=== PATIENT | female | born 1995 | race African-American/Black ===

== ENCOUNTER 2016-05-19 08:05 | Emergency (ER) | payer MEDICAID ==
[~2016-05-19] VITALS: Ht 165.1 cm; Wt 85.0 kg
[2016-05-19 09:06] LABS: BASOPHILS % 0.4 % (0.0-2.0); EOSINOPHILS % 3.6 % (0.0-5.0); HEMOGLOBIN. 12.6 g/dL (12.0-16.0); LYMPHOCYTES % 24.1 % (20.0-50.0); MEAN CORPUSCULAR HEMOGLOBIN 29.2 pg (28.0-32.0); MEAN CORPUSCULAR HGB CONC 33.2 g/dL (31.0-37.0); MEAN PLATELET VOLUME 7.9 fl (7.4-10.4); MONOCYTES % 6.4 % (2.0-8.0); NEUTROPHILS % 65.5 % (40.0-76.0); PLATELET 261 x1000/uL (130-400); RED BLOOD CELL COUNT 4.32 mill/uL (4.2-5.4); RED CELL DISTRIBUTION WIDTH 12.8 % (11.6-14.6); WHITE BLOOD COUNT 7.5 x1000/uL (4.5-11.0)
[2016-05-19 09:14] LABS: CHLORIDE 108 mEq/L (98-107); INDEX HEMOLYSI 1 (1-3); INDEX ICTERIC 1 (1-4); INDEX LIPEMIC 1 (1-3)
[2016-05-19 09:16] LABS: CALCIUM 8.4 mg/dL (8.5-10.1)
[2016-05-19 09:24] LABS: ANION GAP 12; CARBON DIOXIDE 24 mEq/L (21-32); UREA NITROGEN BLOOD 11 mg/dL (7-21); eGFR > 60 mL/min (>60)
[2016-05-19 09:37] LABS: B-HCG QUANTITATIVE 3063 mIU/mL (<3)
[2016-05-19 11:00] VITALS: BP 129/83
== END 2016-05-19 11:01 | disposition home or self-care (01) ==
LOC: ER 08:14
DX: O03.9 Complete or unspecified spontaneous abortion without complication (principal); O26.891 Other specified pregnancy related conditions, first trimester; F41.9 Anxiety disorder, unspecified; Z3A.08 8 weeks gestation of pregnancy
CPT/HCPCS: 36415; 76801; 76817; 80048; 84702; 85025; 86850; 86900; 86901; 99285; Z7610

== ENCOUNTER 2021-02-07 19:14 | Emergency (ER) | payer MEDICAID ==
[~2021-02-07] VITALS: Ht 162.6 cm; Wt 111.3 kg
[2021-02-07 19:30] VITALS: BP 131/58
[2021-02-07 20:45] LABS: CLARITY URINE CLEAR (CLEAR); COLOR URINE YELLOW (YELLOW); KETONES URINE NEGATIVE (NEGATIVE); LEUKOCYTE ESTERASE URINE TRACE (NEGATIVE); NITRITE URINE NEGATIVE (NEGATIVE); OCCULT BLOOD URINE NEGATIVE (NEGATIVE); PROTEIN URINE 2+ (NEGATIVE); SPECIFIC GRAVITY URINE 1.024 (1.005-1.030); UROBILINOGEN URINE 0.2 E.U./dL (0.2-1.0)
== END 2021-02-08 00:48 | disposition left against medical advice (07) ==
LOC: ER 19:14
DX: Z53.21 Procedure and treatment not carried out due to patient leaving prior to being seen by health care provider (principal)
CPT/HCPCS: 81003; 81025

== ENCOUNTER 2023-01-12 03:30 | Emergency (ER) | payer MEDICAID ==
[~2023-01-12] VITALS: Ht 167.6 cm; Wt 91.0 kg
[2023-01-12 03:32] VITALS: O2SAT 99
[2023-01-12] MEDS ORDERED: IBUPROFEN 600MG TABLET PO ONE (03:45)
[2023-01-12] MEDS ORDERED: IBUP-2029 MT (05:39)
[2023-01-12 06:18] VITALS: BP 131/78; PULSE 82; RESP 16; TEMP 98.6
== END 2023-01-12 06:15 | disposition home or self-care (01) ==
LOC: ER 03:30
DX: S06.0X0A Concussion without loss of consciousness, initial encounter (principal); S00.83XA Contusion of other part of head, initial encounter; M25.571 Pain in right ankle and joints of right foot; V98.8XXA Other specified transport accidents, initial encounter; Y93.89 Activity, other specified; Y92.89 Other specified places as the place of occurrence of the external cause; Y99.8 Other external cause status
CPT/HCPCS: 73610; 99284

== ENCOUNTER 2024-12-29 18:09 | Emergency (ER) | payer MEDICAID ==
[~2024-12-29 18:09] MED LIST: IBUP-1455 MT
[2024-12-29 18:21] VITALS: PULSE 100; RESP 18; O2SAT 98
== END 2024-12-29 19:15 | disposition left against medical advice (07) ==
LOC: ER 18:09
DX: R05.9 Cough, unspecified (principal); Z53.21 Procedure and treatment not carried out due to patient leaving prior to being seen by health care provider
CPT/HCPCS: 99281